=== PATIENT | female | born 1955 | race Caucasian/White ===

== ENCOUNTER 2022-12-08 09:43 | Observation (INO) ==
--- NOTE | 2022-08-13 15:52 | PAT Medication Instructions ---
Medication Instructions Date of Service August 13, 2022 Home Medications Prevagen 1 tab PO HS activated charcoal 200 mg capsule 400 mg PO PC PRN alendronate 35 mg tablet 35 mg PO WK aspirin 81 mg capsule 81 mg PO HS benzonatate 100 mg capsule 100 mg PO BID PRN biotin 1 mg capsule 1 mg PO QAM calcium carbonate 600 mg-vitamin D3 5 mcg (200 unit) tablet 1 tab PO QAM celecoxib 200 mg capsule (Celebrex) 200 mg PO DAILY PRN celecoxib 200 mg capsule (Celebrex) 200 mg PO QAM cholecalciferol (vitamin D3) 50 mcg (2,000 unit) capsule (Vitamin D3) 100 mcg PO Q2D cyanocobalamin (vitamin B-12) 2,500 mcg sublingual tablet (Vitamin B-12) 2,500 mcg sublingual QAM levothyroxine 50 mcg tablet 50 mcg PO HS lisinopril 20 mg-hydrochlorothiazide 25 mg tablet 1 tab PO QAM magnesium oxide 400 mg PO QAM melatonin 5 mg tablet 5 - 10 mg PO HS PRN [id number] 250 mg-dha 90 mg-epa 160 sx-hmbv-bvfe-zeax capsule (Ocuvite Adult 50 Plus) 1 cap PO QAM rosuvastatin 10 mg tablet 10 mg PO HS semaglutide 0.25 mg or 0.5 mg (2 mg/3 mL) subcutaneous pen injector (Ozempic) 0.5 mg subcut WK sertraline 50 mg tablet (Zoloft) 50 mg PO HS sour vasquez extract 1,000 mg capsule (Tart Vasquez Extract) 1,000 mg PO HS turmeric root extract 500 mg capsule 500 mg PO HS Continue as directed semaglutide 0.25 mg or 0.5 mg (2 mg/3 mL) subcutaneous pen injector (Ozempic) 0.5 mg subcut WK ASK your surgeon for instructions celecoxib 200 mg capsule (Celebrex) 200 mg PO DAILY PRN celecoxib 200 mg capsule (Celebrex) 200 mg PO QAM ASK your prescriber and surgeon Prevagen 1 tab PO HS STOP taking 2 weeks before surgery (or as soon as possible if surgery is within 2 weeks) activated charcoal 200 mg capsule 400 mg PO PC PRN biotin 1 mg capsule 1 mg PO QAM [id number] 250 mg-dha 90 mg-epa 160 pi-mlry-wqha-zeax capsule (Ocuvite Adult 50 Plus) 1 cap PO QAM sour vasquez extract 1,000 mg capsule (Tart Vasquez Extract) 1,000 mg PO HS turmeric root extract 500 mg capsule 500 mg PO HS DO NOT take the morning of surgery alendronate 35 mg tablet 35 mg PO WK benzonatate 100 mg capsule 100 mg PO BID PRN calcium carbonate 600 mg-vitamin D3 5 mcg (200 unit) tablet 1 tab PO QAM cholecalciferol (vitamin D3) 50 mcg (2,000 unit) capsule (Vitamin D3) 100 mcg PO Q2D cyanocobalamin (vitamin B-12) 2,500 mcg sublingual tablet (Vitamin B-12) 2,500 mcg sublingual QAM lisinopril 20 mg-hydrochlorothiazide 25 mg tablet 1 tab PO QAM magnesium oxide 400 mg PO QAM Take evening before surgery aspirin 81 mg capsule 81 mg PO HS (unless directed otherwise by surgeon) benzonatate 100 mg capsule 100 mg PO BID PRN(if needed) levothyroxine 50 mcg tablet 50 mcg PO HS melatonin 5 mg tablet 5 - 10 mg PO HS PRN(if needed) rosuvastatin 10 mg tablet 10 mg PO HS sertraline 50 mg tablet (Zoloft) 50 mg PO HS Other Notes NOTHING TO EAT OR DRINK AFTER MIDNIGHT. If you have any questions please call us at [phone] or [phone] or [phone] or [phone]
--- NOTE | 2022-08-27 11:00 | Anesthesiology Consultation ---
Date of Service August 27, 2022 Assessment & Plan (1) Encounter for pre-operative examination: Chart Review Chart Review: Acceptable Risk for Surgery and Patient seen in Pre Admission Testing - Check BSG AM DOS Hx of MS- did educate patient that TKA will most likely be done under GA- patient will discuss with anesthesiologist DOS - Due to functional status and PMH- patient is NOT an ideal OPJ candidate Per PAT appt on 08/27/22, patient denies any recent travel or large group activities. Pt is vaccinated for Covid. Will leave to surgeon's discretion if preop Covid testing needed. Educated on importance of using Covid precautions one week prior to surgery Teaching & Discussion Pre-Anesthesia Teaching/Discussion Notes: Instructed NPO after midnight before surgery,except medications with 15 cc of water. Medication instructions provided according to the PAT guidelines. History Surgery Operation Date: 09/19/22 07:00 Proposed Procedures p Right Total Knee Arthroplasty - Sonny Reed DO Height/Weight Height: 5 ft 4 in Weight: 111.5 kg Allergies Allergy/AdvReac Type Severity Reaction Status Date / Time Iodinated Contrast Media Allergy Severe Difficulty Verified 08/13/22 12:52 Breathing pregabalin [From Lyrica] Allergy Intermediate difficulty Verified 08/13/22 12:52 walking tetracycline Allergy Intermediate Rash Verified 08/13/22 12:52 Medications Home Medications Medication Instructions Recorded Confirmed Last Taken Prevagen 1 tab PO HS 08/13/22 08/13/22 Unknown activated charcoal 200 mg capsule 400 mg PO PC PRN ud 08/13/22 08/13/22 Unknown alendronate 35 mg tablet 35 mg PO WK 08/13/22 08/13/22 Unknown aspirin 81 mg capsule 81 mg PO HS 08/13/22 08/13/22 Unknown benzonatate 100 mg capsule 100 mg PO BID PRN Cough 08/13/22 08/13/22 Unknown biotin 1 mg capsule 1 mg PO QAM 08/13/22 08/13/22 Unknown calcium carbonate 600 mg-vitamin 1 tab PO QAM 08/13/22 08/13/22 Unknown D3 5 mcg (200 unit) tablet celecoxib 200 mg capsule (Celebrex) 200 mg PO DAILY PRN Pain 08/13/22 08/13/22 Unknown celecoxib 200 mg capsule (Celebrex) 200 mg PO QAM 08/13/22 08/13/22 Unknown cholecalciferol (vitamin D3) 50 100 mcg PO Q2D 08/13/22 08/13/22 Unknown mcg (2,000 unit) capsule (Vitamin D3) cyanocobalamin (vitamin B-12) 2,500 mcg sublingual QAM 08/13/22 08/13/22 Unknown 2,500 mcg sublingual tablet (Vitamin B-12) levothyroxine 50 mcg tablet 50 mcg PO HS 08/13/22 08/13/22 Unknown lisinopril 20 1 tab PO QAM 08/13/22 08/13/22 Unknown mg-hydrochlorothiazide 25 mg tablet magnesium oxide 400 mg PO QAM 08/13/22 08/13/22 Unknown melatonin 5 mg tablet 5 - 10 mg PO HS PRN Sleep 08/13/22 08/13/22 Unknown gqnzqoxk-rsl-tiokn0 250 mg-dha 90 1 cap PO QAM 08/13/22 08/13/22 Unknown mg-epa 160 su-mgtx-nxvm-zeax capsule (Ocuvite Adult 50 Plus) rosuvastatin 10 mg tablet 10 mg PO HS 08/13/22 08/13/22 Unknown semaglutide 0.25 mg or 0.5 mg (2 0.5 mg subcut WK 08/13/22 08/13/22 Unknown mg/3 mL) subcutaneous pen injector (Ozempic) sertraline 50 mg tablet (Zoloft) 50 mg PO HS 08/13/22 08/13/22 Unknown sour vasquez extract 1,000 mg 1,000 mg PO HS 08/13/22 08/13/22 Unknown capsule (Tart Vasquez Extract) turmeric root extract 500 mg 500 mg PO HS 08/13/22 08/13/22 Unknown capsule Additional Notes: - Takes activated charcoal only PRN (if eats too much) Past Medical History Medical History (Updated 08/27/22 @ 11:29 by Gena Giraldo PA-C) Anxiety Diabetes mellitus, type 2 controlled per patient Dyspnea on exertion Chronic - stable Hyperlipidemia Hypertension Hypothyroidism Multiple sclerosis stable currently- no medications at this time (on Copaxone in the best)- no longer needs to follow with neurology Osteoarthritis Osteoporosis Sleep apnea Noncompliant with CPAP Exercise / Class Metabolic Activity III < 4 Walking/Shop/Light housework (one flight stairs - no chest pain or SOB - goes slow to knee pain ) Past Family History Family History Mother FHx: stroke Father FHx: myocardial infarction Daughter FHx: non-Hodgkin's lymphoma, Onset Age: 35 Other No family history of adverse response to anesthesia Past Surgical History Surgical History History of cataract surgery bilateral History of colonoscopy History of detached retina repair left History of dilatation and curettage History of tonsillectomy S/P hammer toe correction S/P laparoscopic assisted vaginal hysterectomy (LAVH) S/P left knee arthroscopy x2 Past Anesthesia History No Hx of Anesthesia Complications and No Family Hx of Anesthesia Complications History of PONV No Hx of PONV and No Hx of Motion Sickness Social History Smoking Status: Never smoker Do You Dip or Chew Tobacco: No Hx Alcohol Use: Yes Alcohol type: wine alcohol intake frequency: holidays/special occasions only Hx Substance Use: No substance use type: does not use Review of Systems - Hx of blood transfusion at due to mother having Rh (-) blood Patient denies chest pain, shortness of breath at rest, reflux, cough, wheezing, palpitations. No hx of seizures, stroke, NV. No hx of blood clots. Physical Exam Vital Signs VITALS BP 154/89 (check daily at home- usually well controlled per patient) P 69 TEMP 98.1 SP02 96% RESP 16 Constitutional no acute distress ENMT Mouth: no TMJ clicking Thyromental Distance: > or= 3.5 Finger Breadths (3.5) Mallampati Class: I Missing molars Getting cavity repaired 09/03/22- patient states surgeon aware Neck + thick neck (mild); neck extension not limited Respiratory normal respiratory effort; no respiratory distress Auscultation: lungs clear to auscultation bilaterally; no wheezes Cardiovascular Rate/Rhythm: regular rate and regular rhythm Heart Sounds: no murmur Vessels: no carotid bruit Musculoskeletal Spine: no pain with cervical ROM Extremities: extremities normal to inspection Psychiatric Orientation: alert Lab Results Anesthesia Preop Results Results Anesthesia Widget: WBC 7.18 K/ul (4.8-10.8) 08/27/22 Hgb 13.9 g/dl (12.0-16.0) 08/27/22 Hct 40.9 % (37.0-47.0) 08/27/22 Plt 262 K/uL (130-400) 08/27/22 Na 139 mmol/L (136-145) 08/27/22 K 4.1 mmol/L (3.5-5.1) 08/27/22 Cl 103 mmol/L (98-107) 08/27/22 CO2 27 mmol/L (21-32) 08/27/22 BUN 14 mg/dl (6-23) 08/27/22 Creat 0.70 mg/dl (0.6-1.2) 08/27/22 Glucose Level 99 mg/dl (70-99(Fasting)) 08/27/22 PT 10.5 Seconds (9.0-12.0) 08/27/22 PTT 25.6 Seconds (21.0-31.0) 08/27/22 INR 1.0 (0.9-1.1) 08/27/22 HA1c 5.9 % (4.5-5.6) H 08/27/22 Blood Type B Positive 08/27/22 Antibody Screen NEGATIVE 08/27/22 Testing Electrocardiogram Date: 08/27/22 Findings: + NSR @ (66bpm ) Normal EKG per cardio Chest X-Ray Date: 08/27/22 Findings: + NAD Stress Test Date: 09/17/17 Type: exercise (ECHO) The study is suboptimal with improper matching of the rest and stress images, however there is normal resting wall motion with EF of 60%. All chan appear to be hyperdynamic with exercise. Exercise stress EKG and echo were negative for ischemia at low workload; the patient exercised only for 3:27 minutes >100% MPHR COVID-19 Risk Screen Screening Information COVID-19 Screen Date: 08/27/22 Exposure 21 Days Family/Household +COVID Last 21 Days: No Exposure 10 Days Any COVID Exposure Last 10 Days: No Symptoms Last 10 Days Experienced COVID Sx Last 10 Days: No + COVID 0-90 Days COVID + in Last 0-90 Days: No Risk Plan COVID Risk Plan: No Risk Identified Patient Education COVID Preop Screening Education Complete: Yes
--- NOTE | 2022-12-04 08:16 | History & Physical Report ---
Date of Service December 04, 2022 Assessment & Plan (1) Osteoarthritis of right knee: We will proceed with a right total knee arthroplasty. Postoperatively she will be started on aspirin for DVT prophylaxis and kept overnight in the hospital for postop medical management. [facility]. History of Present Illness Chief Complaint: Osteoarthritis of the right knee. Primary Care Provider: Janneth Pereira PA-C Zoie is a pleasant 67-year-old female has been dealing with chronic increasing osteoarthritis of her right knee. X-rays and clinical examination have confirmed the arthritis. After failing extensive conservative treatment, she has elected proceed with a right total knee arthroplasty.. Allergies Allergy/AdvReac Type Severity Reaction Status Date / Time Iodinated Contrast Media Allergy Severe Difficulty Verified 11/27/22 09:43 Breathing pregabalin [From Lyrica] Allergy Intermediate difficulty Verified 11/27/22 09:43 walking tetracycline Allergy Intermediate Rash Verified 11/27/22 09:43 Home Medications Medication Instructions Recorded Confirmed Type Prevagen 1 tab PO HS 08/13/22 11/27/22 History activated charcoal 200 mg capsule 400 mg PO PC PRN ud 08/13/22 11/27/22 History alendronate 35 mg tablet 35 mg PO WK 08/13/22 11/27/22 History aspirin 81 mg capsule 81 mg PO HS 08/13/22 11/27/22 History benzonatate 100 mg capsule 100 mg PO BID PRN Cough 08/13/22 11/27/22 History biotin 1 mg capsule 1 mg PO QAM 08/13/22 11/27/22 History calcium carbonate 600 mg-vitamin 1 tab PO QAM 08/13/22 11/27/22 History D3 5 mcg (200 unit) tablet celecoxib 200 mg capsule (Celebrex) 200 mg PO DAILY PRN Pain 08/13/22 11/27/22 History celecoxib 200 mg capsule (Celebrex) 200 mg PO QAM 08/13/22 11/27/22 History cholecalciferol (vitamin D3) 50 100 mcg PO Q2D 08/13/22 11/27/22 History mcg (2,000 unit) capsule (Vitamin D3) cyanocobalamin (vitamin B-12) 2,500 mcg sublingual QAM 08/13/22 11/27/22 History 2,500 mcg sublingual tablet (Vitamin B-12) levothyroxine 50 mcg tablet 50 mcg PO HS 08/13/22 11/27/22 History lisinopril 20 1 tab PO QAM 08/13/22 11/27/22 History mg-hydrochlorothiazide 25 mg tablet magnesium oxide 400 mg PO QAM 08/13/22 11/27/22 History melatonin 5 mg tablet 5 - 10 mg PO HS PRN Sleep 08/13/22 11/27/22 History bqjwylyu-xhu- 250 mg-dha 90 1 cap PO QAM 08/13/22 11/27/22 History mg-epa 160 ve-wapb-ccyy-zeax capsule (Ocuvite Adult 50 Plus) rosuvastatin 10 mg tablet 10 mg PO HS 08/13/22 11/27/22 History semaglutide 0.25 mg or 0.5 mg (2 0.5 mg subcut WK 08/13/22 11/27/22 History mg/3 mL) subcutaneous pen injector (Ozempic) sertraline 50 mg tablet (Zoloft) 50 mg PO HS 08/13/22 11/27/22 History sour vasquez extract 1,000 mg 1,000 mg PO HS 08/13/22 11/27/22 History capsule (Tart Vasquez Extract) turmeric root extract 500 mg 500 mg PO HS 08/13/22 11/27/22 History capsule mirabegron 25 mg tablet,extended 25 mg PO QAM 11/27/22 11/27/22 History release 24 hr (Myrbetriq) Past Med/Surg History Medical History Anxiety Diabetes mellitus, type 2 controlled per patient Dyspnea on exertion Chronic - stable Hyperlipidemia Hypertension Hypothyroidism Multiple sclerosis stable currently- no medications at this time (on Copaxone in the best)- no longer needs to follow with neurology Osteoarthritis Osteoporosis Sleep apnea Noncompliant with CPAP Surgical History History of cataract surgery bilateral History of colonoscopy History of detached retina repair left History of dilatation and curettage History of tonsillectomy S/P hammer toe correction S/P laparoscopic assisted vaginal hysterectomy (LAVH) S/P left knee arthroscopy x2 Family History Mother FHx: stroke Father FHx: myocardial infarction Daughter FHx: non-Hodgkin's lymphoma, Onset Age: 35 Other No family history of adverse response to anesthesia Social History Smoking Status: Never smoker Second Hand Exposure: Yes (hx); Do You Dip or Chew Tobacco: No; Hx Alcohol Use: Yes Alcohol type: wine Hx Substance Use: No Preferred Language: Uzbek Communication Ability: Effective Health And Social Care Teacher Required: No Beliefs That Will Affect Care: None Current Living Situation: Spouse Feels Safe at Home: Yes Assistive Devices: CPAP and Glasses Review of Systems All systems reviewed & are unremarkable except as noted in HPI & below. Physical Exam On physical examination the right knee, she does have a varus deformity. She has range of motion of 0 to 120 degrees. No gross instability. Pain of the distal medial femoral condyle and over the medial joint line.. Constitutional WD/WN, vitals as above Eyes PERRL, conjunctivae normal, anicteric sclerae ENMT external ear and nose normal, oropharynx normal Neck trachea midline, no thyromegaly Respiratory normal respiratory effort, lungs clear to auscultation Cardiovascular RRR, no murmur, no edema Gastrointestinal (Abdomen) normal bowel sounds, soft, nontender, no hepatosplenomegaly Skin no rashes, warm and dry Psychiatric A+Ox3, euthymic affect Results & Data Results & Data Laboratory Results . Diagnostic Findings X-rays of the right knee show advanced osteoarthritis with joint space narrowing, osteophyte formation, and rwld-qp-pjmk articulation.. PG Care Time/CCT Total # of Minutes Spent Total Time Spent with Patient: Total time spent is greater than 50% in coordination of care (as documented) at patient's floor/unit and/or counseling patient: Coding Level of Care Code None Diagnoses Osteoarthritis of right knee M17.11
[~2022-12-08 09:43] MED LIST: ACETAMINOPHEN 500 MG TAB PO SCH; BUPIVACAINE 0.5 % 5 MG/1 ML PF 10ML VIAL ONE; FAMOTIDINE 20 MG TAB PO SCH; GABAPENTIN 300 MG CAP PO SCH; LR 15ML/HR IV SCH; LR 60ML/HR IV SCH; ORTHO JOINT MIX INFIL SCH; ROPIVACAINE 0.5% 5 MG/ML 30 ML VIAL ONE; TRANEXAMIC ACID 1,000 MG **IV Intra-op IV SCH; TRANEXAMIC ACID 1,000 MG **IV Pre-op IV SCH; ceFAZolin 2000MG 2,000 MG/15 ML SYR IV SCH; dexAMETHasone 4 MG TAB PO SCH
[2022-12-08] MEDS ORDERED: MIDAZOLAM HCL 1 MG/ML 2ML VIAL ONE (10:07)
[2022-12-08] MEDS ORDERED: PROPOFOL IV EMULSION 10 MG/ML 20 ML VIAL IV ONE (10:07)
[2022-12-08] MEDS ORDERED: fentaNYL citrate PF 100 MCG/2 ML VIAL ONE ×2 (10:07→13:41)
[2022-12-08] MEDS ORDERED: ONDANSETRON INJ 2 MG/ML 2 ML VIAL ONE (10:07)
--- NOTE | 2022-12-08 10:44 | History & Physical Bridge Note ---
Date of Service December 08, 2022 History & Physical Bridge Note I have examined the patient, reviewed the History & Physical and in the interval since the performance of the History & Physical I have noted the following changes of clinical significance: no changes noted
[2022-12-08] MEDS ORDERED: ePHEDrine sulfate 50 MG/ML AMP IV PRN (10:59)
[2022-12-08] MEDS ORDERED: ATROPINE SULFATE 0.1 MG/ML 10ML SYR IV PRN (10:59)
[2022-12-08] MEDS ORDERED: ONDANSETRON INJ 2 MG/ML 2 ML VIAL IV PRN ×2 (10:59→17:23)
[2022-12-08] MEDS ORDERED: fentaNYL citrate PF 100 MCG/2 ML VIAL IV PRN (10:59)
[2022-12-08] MEDS ORDERED: ORTHO JOINT ANESTHETIC ONE (11:15)
[2022-12-08] MEDS ORDERED: LIDOCAINE 2% 2 ML VIAL/AMP(20MG/ML) INFIL ONE (13:30)
[2022-12-08] MEDS ORDERED: ROCURONIUM BROMIDE 10 MG/ML 5 ML VIAL IV ONE (13:30)
[2022-12-08] MEDS ORDERED: LABETALOL HCL IV 5 MG/ML 20ML IV ONE ×2 (13:47→13:59)
[2022-12-08] MEDS ORDERED: ePHEDrine sulfate 50 MG/5 ML SYR ONE (14:19)
[2022-12-08] MEDS ORDERED: NEOSTIGMINE METHYLSULFATE 1 MG/ML 10ML VIAL ONE (14:30)
[2022-12-08] MEDS ORDERED: GLYCOPYRROLATE 0.2 MG/ML VIAL ONE (14:30)
[2022-12-08] MEDS ORDERED: HYDROmorphone INJ 2 MG/ML SYR/VIAL ONE (14:55)
--- NOTE | 2022-12-08 15:03 | Operative Report ---
PG Post Operative Report Pre & Post Diagnosis Operation Date: 12/08/22 11:30 Pre-Op Diagnosis: Right Knee Degenerative Joint Disease Post-Op Diagnosis: Right Knee Degenerative Joint Disease I identified the patient and participated in the time-out.: Yes Procedure Operation Date: 12/08/22 11:30 Actual Procedures p Right Total Knee Arthroplasty(Right) - Sonny Reed DO Surgeon Sonny Reed DO Fancy Packer Sonny Boss PA-C Estimated Blood Loss 200 Findings Consistent with Post-Op Diagnosis Specimens Right femoral and tibial bone Description of Procedure Implants used: I used a Vi Persona total knee arthroplasty system with a size 8 standard PS femur, E tibia, 31 oval patella, and a size 16 CPS polyethylene bearing. All components were cemented in place with Biomet cement. Zoie arrived [facility] for the above procedure. She was seen in the preoperative holding area and the operative extremity was identified and signed. She was given a preoperative antibiotic, TXA, a spinal anesthetic and an adductor nerve block. She was taken back to the operating room and laid on the table in supine position. She was given basic sedation. The operative knee was then prepped and draped in sterile fashion. A timeout was done, and the patient and the operative extremity was properly identified. A midline incision was made directly over the patella. Dissection was taken down to the extensor mechanism. A midvastus arthrotomy was used. The medial retinaculum was released and the fat pad was mostly excised. The knee was flexed and the ACL, PCL, and meniscus were removed. A drill was sent down the center of the femoral canal followed by an intramedullary leanne. Off that leanne a distal femoral cutting block was placed. 9 mm was resected off the distal femur at 5 of valgus. A posterior referencing AP sizing guide was then placed on the distal femur. The femur measured to be a size 8. 2 drill holes were placed in 3 of external rotation. A 4-in-1 cutting block was then impacted into place. Anterior, posterior, and chamfer cuts were then made. The proximal tibia was then exposed. An external tibial alignment guide was placed. A tibial cut guide was then anchored in place and the proximal tibia was then resected. The posterior aspect of the knee was then opened up and any additional meniscus fragments and osteophytes were removed. The tibia measured to be a size E. The tibial plate was then placed in the appropriate rotation and the tibia was drilled and punched. Trial components were then placed. I used a size 16 CPS polyethylene insert. The knee was brought through a full range of motion and felt to be stable. The peg holes for the femoral component were then drilled. The patella was then everted and 9 mm was resected off the posterior aspect of the patella. The patella measured to be a size 31 oval. 3 peg holes were then drilled. A trial patella was placed. The knee was once again brought through a full range of motion and felt to be stable. Trial components were then removed. The surrounding soft tissues were injected with 100 cc of an orthopedic pain control cocktail. All components were then cemented into place with Biomet cement. The final polyethylene insert was then snapped into place. Once cement was dry the tourniquet was deflated. Hemostasis was obtained. A dilute betadyne lavage was then done for 3 minutes. The joint was then irrigated with normal saline solution. The midvastus arthrotomy was then closed with #1 Vicryl suture. The skin was closed with 2-0 Vicryl, 3-0V lock suture, and mart. A soft compressive dressing was placed. She was then transferred to a hospital bed and taken to the postanesthesia care unit in stable condition. She tolerated the procedure well. Sonny Boss PA-C, was present for the entire procedure. He was critical for patient positioning, prepping, draping, retraction exposure, wound closure and application of sterile dressing. I attest to the content of the Intraoperative Record and any orders documented therein. Any exceptions are noted below.
--- NOTE | 2022-12-08 16:12 | XRay Report ---
XR knee RT 1 or 2V routine HISTORY: 67 years-old Female Surgical Post Op right knee arthroplasty COMPARISON: 06/04/2022 TECHNIQUE: 2 views of the right knee FINDINGS: Total arthroplasty with patellar surfacing. Anterior midline skin mart with postoperative soft tis anahy swelling and deep tissue air. The degree of anterior soft tissue swelling is greater than expecte d. No acute fracture identified. IMPRESSION: Right knee arthroplasty with satisfactory alignment. ACT 112: Negative or not required by law. The above report was generated using voice recognition software. It may contain grammatical, syntax o r spelling errors. Electronically signed by: Morgan Echavarria M.D. 12/08/2022 4:11 PM
--- NOTE | 2022-12-08 16:14 | Anesthesiology Progress Note ---
Date of Service December 08, 2022 Anesthesia Post Procedure Vital Signs Vital Signs: Temp Pulse Pulse Resp BP Pulse Ox O2 Del Method 12/08/22 16:10 71 14 140/82 98 Nasal Cannula 12/08/22 16:00 36.3 C L 76 20 154/77 H 97 Nasal Cannula 12/08/22 15:50 74 16 141/77 H 95 Oxymask 12/08/22 15:30 74 16 149/68 H 93 Oxymask 12/08/22 15:40 76 15 150/82 H 94 Oxymask 12/08/22 15:20 75 18 149/74 H 92 Oxymask 12/08/22 15:12 36.2 C L 73 16 126/67 92 Oxymask 12/08/22 10:18 36.8 C 94 H 20 196/88 H 95 Room Air O2 Flow Rate 12/08/22 16:10 2 12/08/22 16:00 3 12/08/22 15:50 3 12/08/22 15:30 8 12/08/22 15:40 8 12/08/22 15:20 10 12/08/22 15:12 10 12/08/22 10:18 Transfer of Care Handoff Completed per policy Notes Mental Status: alert / awake / arousable and participated in evaluation Patient Amnestic to Procedure: Yes Nausea / Vomiting: adequately controlled Pain: adequately controlled Airway Patency, RR, SpO2: stable & adequate BP & HR: stable & adequate Hydration State: stable & adequate Anesthetic Complications: no major complications apparent and Pt Satisfied with anesthetic care
[2022-12-08] MEDS ORDERED: MAGNESIUM HYDROXIDE SUSP 30 ML UDC PO PRN (17:23)
[2022-12-08] MEDS ORDERED: NALOXONE HCL 0.4 MG/1 ML VIAL/CARP IV PRN (17:23)
[2022-12-08] MEDS ORDERED: SODIUM CHLORIDE 0.9% 1,000 ML IV SCH (17:23)
[2022-12-08] MEDS ORDERED: HYDROmorphone INJ 0.5 MG/0.5 ML SYR IV PRN (17:23)
[2022-12-08] MEDS ORDERED: oxyCODONE HCL IR 5 MG TAB (IMMEDIATE RELEASE) PO PRN (17:23)
[2022-12-08] MEDS ORDERED: bisacodyL 10 MG SUPP PR PRN (17:23)
[2022-12-08] MEDS ORDERED: METOCLOPRAMIDE HCL INJ 5 MG/ML 2 ML VIAL IV PRN (17:23)
[2022-12-08] MEDS: KETOROLAC TROMETHAMINE 15 MG/ML VIAL IV SCH (17:53)
[2022-12-08] MEDS ORDERED: PHARMACY GLYCEMIC MGMT CONSULT PRN (18:40)
[2022-12-08] MEDS ORDERED: LANTUS PER UNIT CHARGE SC ONE (19:00)
[2022-12-08] MEDS ORDERED: INSULIN ASPART PER UNIT CHARGE SC SCH (19:00)
[2022-12-08] MEDS: INSULIN ASPART PER UNIT CHARGE SC SCH (19:43)
[2022-12-08] MEDS: ASPIRIN 81 MG ECTAB PO SCH (19:44)
[2022-12-08] MEDS: DOCUSATE SODIUM 100 MG CAP PO SCH (19:45)
[2022-12-08] MEDS: ceFAZolin 2000MG 2,000 MG/15 ML SYR IV SCH (20:06)
[2022-12-08] MEDS ORDERED: SERTRALINE HCL 50 MG TABLET PO SCH (21:00)
[2022-12-08] MEDS ORDERED: LEVOTHYROXINE SODIUM 50 MCG TABLET PO SCH (21:00)
[2022-12-08] MEDS ORDERED: ROSUVASTATIN CALCIUM 10 MG TAB PO SCH (21:00)
[2022-12-08] MEDS ORDERED: SENNA 8.6 MG TAB PO SCH (21:00)
[2022-12-08] MEDS: ACETAMINOPHEN 500 MG TAB PO SCH (22:01)
[2022-12-09] MEDS: INSULIN ASPART PER UNIT CHARGE SC SCH ×4 (00:06→12:43)
[2022-12-09] MEDS: KETOROLAC TROMETHAMINE 15 MG/ML VIAL IV SCH ×2 (00:12→04:04)
[2022-12-09] MEDS: ceFAZolin 2000MG 2,000 MG/15 ML SYR IV SCH (04:03)
[2022-12-09] MEDS: ACETAMINOPHEN 500 MG TAB PO SCH (04:04)
--- NOTE | 2022-12-09 07:07 | Orthopedic Progress Note ---
Date of Service December 09, 2022 Assessment & Plan (1) Status post right knee replacement: Overall she is doing very well. She is not having much pain in the right knee. She will be seen by physical therapy today for ambulation and range of motion exercises. She is on aspirin for DVT prophylaxis. She can be discharged home later today. She will follow-up orthopedics in 2 weeks. Subjective Zoie was seen and examined at bedside this morning. Overall she is doing very well. She is not having much pain in the right knee. She has been up and ambulating to the bathroom. She has no complaints.. Review of Systems All systems reviewed & are unremarkable except as noted in HPI & below. Physical Exam On physical examination of the right knee, the dressing is clean and dry. Her leg is out full extension. She has active dorsiflexion plantarflexion of her right ankle.. Results & Data Results & Data Laboratory Results . Diagnostic Findings Postoperative x-rays of the right knee show the prosthesis to be in anatomic alignment without any evidence of fracture complication, or loosening.. PG Care Time/CCT Total # of Minutes Spent Total Time Spent with Patient: Total time spent is greater than 50% in coordination of care (as documented) at patient's floor/unit and/or counseling patient: Coding Level of Care Code 20714 Post Operative Follow-Up Diagnoses Status post right knee replacement Z96.651
--- NOTE | 2022-12-09 07:08 | Discharge Summary ---
Date of Service December 09, 2022 Admission HPI (Per Admitting) Zoie is a pleasant 67-year-old female has been dealing with chronic increasing osteoarthritis of her right knee. X-rays and clinical examination have confirmed the arthritis. After failing extensive conservative treatment, she has elected proceed with a right total knee arthroplasty.. Admission Exam (Per Admitting) On physical examination the right knee, she does have a varus deformity. She has range of motion of 0 to 120 degrees. No gross instability. Pain of the distal medial femoral condyle and over the medial joint line.. Principal Diagnosis Same as "Discharge Diagnosis" noted below under Discharge Instructions. Discharge Exam On physical examination of the right knee, the dressing is clean and dry. Her leg is out full extension. She has active dorsiflexion plantarflexion of her right ankle.. Discharge Data Procedures Performed Operation Date: 12/08/22 11:30 Actual Procedures p Right Total Knee Arthroplasty(Right) - Sonny Reed DO Ordered Studies 09/19/22 05:00 US - OR guided needle placemen Routine 12/08/22 05:00 US - OR guided needle placemen Routine Hospital Course (1) Status post right knee replacement: On December 09, 2022 Zoie arrived at [facility] and underwent a right knee replaced without complication. She had a spinal anesthetic. Postoperatively she was started on aspirin for DVT prophylaxis and transferred to the general orthopedic floors. Her hospital course was uneventful. On postop day #1, her vital signs were stable and her pain was well controlled. She was able to participate well with physical therapy doing ambulation and range of motion exercises. She was then discharged home. She will follow-up orthopedics in 2 weeks. PG Care Time/CCT Total # of Minutes Spent Total Time Spent with Patient: Total time spent is greater than 50% in coordination of care (as documented) at patient's floor/unit and/or counseling patient: Discharge Plan Discharge Items Patient Disposition: Home - Home Health Services Reason For Visit: POST OP Discharge Diagnosis: Right knee replacement Activity: Per Instructions section Non-emergency contact: Surgeon Call non-emergency contact if: your wound has increased redness and your wound has increased drainage Follow-up/Referrals: Janneth Pereira PA-C [Primary Care Provider] - Diet: Regular Addtl Attending Provider Instructions: Activity and Therapy Recommendations: * If you are using [facility] then therapy will be provided at your home until they feel you have accomplished all of your goals. * If you are using [facility] then Physical Therapy will be provided until they feel you are ready to start Outpatient Physical Therapy. * If you are not using home therapy then Outpatient Physical Therapy should start about 3-5 days from your day of surgery. Therapy will last about 6-10 weeks * It is important not to put a pillow under your knee when you are relaxing or sleeping. It is just as important to make sure you are getting your knee perfectly straight as it is to regain your knee bend. * You were shown a series of exercises in the hospital. Do these exercises three times each day including the exercises you were shown in physical therapy. * Get up and walk several times each day. For the first four weeks, try not to stand or walk for more than one hour at a time. If you do stand or walk for more than one hour, you will not hurt anything, but your leg will likely swell. * As you feel comfortable, you may change from the walker or crutches to a cane and then to independent walking. Medications: * Narcotic You will likely be sent home from the hospital with a prescription for the narcotic pain medication that worked best throughout your stay. * Aspirin Most patients will be required to take Aspirin 81mg twice a day for 6 weeks after surgery. This is obtained [id number] and a prescription is not necessary. * Other medications may be prescribed for specific circumstances. If you have any questions, please call the office at . * Resume previous home medications unless otherwise instructed TEDs/Elastic Stockings: The white elastic stockings help limit swelling and prevent blood clots from forming in your legs.~ The more you wear them, the more they work. Wear them for six weeks. Dressing Care: The dressing can be changed after physical therapy on postop day #1. Daily dry dressing changes for a few days, especially if the incision is still draining some. If the incision is not draining then you may leave the mart open to air. If there is a little bit of drainage or if the mart are getting stuck on your clothing then cover the incision with a dry dressing. The mart will be removed at your 2 week follow-up appointment. Showering: You may shower 5 days from the day of surgery as long as the incision is no longer draining. You may shower with the mart exposed. Let soapy water run over the mart and pat them dry. Do not scrub or soak the incision. Things To Watch For: * Drainage from the incision site that occurs more than one week after your surgery. * Increased redness at the incision site. * Fever above 102 degrees Fahrenheit. * Unusual chest pain or shortness of breath. * Call [facility] at with any of the above problems Follow-Up Visit: Follow-up with Dr. Reed's PA (Sonny Boss) 2-3 weeks after your day of surgery. He will remove your mart and answer any questions. If you have any additional questions or concerns, Dr Reed is usually in the office at the same time and will be available An appointment was probably scheduled when you signed-up for surgery in the office. If you have any questions call Office Instructions: More detailed instructions as well as Frequently Asked Questions were provided in a folder by our office when you signed-up for surgery. Please review these instructions when you get home. If you have any further questions or concerns, please feel free to call the office at [phone] Pending Studies at Discharge: No Stand-Alone Forms: [facility] Medications and DC Order Prescriptions: New oxycodone 5 mg Tablet 5 mg PO Q4H PRN (Reason: pain) Qty: 30 0RF Continued celecoxib [Celebrex] 200 mg Capsule 200 mg PO DAILY PRN (Reason: Pain) cyanocobalamin (vitamin B-12) [Vitamin B-12] 2,500 mcg Tablet, Sublingual 2,500 mcg SUBLINGUAL QAM calcium carbonate-vitamin D3 [Calcium + D] 600 mg-5 mcg (200 unit) Tablet 1 tab PO QAM alendronate 35 mg Tablet 35 mg PO WK benzonatate [Tessalon Perles] 100 mg Capsule 100 mg PO BID PRN (Reason: Cough) levothyroxine 50 mcg Tablet 50 mcg PO HS lisinopril-hydrochlorothiazide 20-25 mg Tablet 1 tab PO QAM sertraline [Zoloft] 50 mg Tablet 50 mg PO HS rosuvastatin 10 mg Tablet 10 mg PO HS activated charcoal 200 mg Capsule 400 mg PO PC PRN (Reason: ud) Rx Instructions: may repeat dose once in 2 hours if incomplete response melatonin 5 mg Tablet 5 - 10 mg PO HS PRN (Reason: Sleep) cholecalciferol (vitamin D3) [Vitamin D3] 50 mcg (2,000 unit) Capsule 100 mcg PO Q2D turmeric root extract 500 mg Capsule 500 mg PO HS biotin 1 mg Capsule 1 mg PO QAM magnesium oxide 400 mg magnesium Tablet 400 mg PO QAM Ocuvite Adult 50 Plus 250 mg (90 mg-160 mg) Capsule 1 cap PO QAM Ozempic 0.25 mg or 0.5 mg (2 mg/3 mL) Pen Injector 0.5 mg SUBCUT WK Patient Comments: sundays Prevagen 1 tab PO HS Myrbetriq 25 mg Tablet Extended Release 24 Hr 25 mg PO QAM Changed aspirin 81 mg Capsule 81 mg PO BID 42 Days Qty: 0 0RF Admission Data Admit Date/Time: 12/08/22 15:12 Attending Provider: Sonny Reed Admit Provider: Sonny Reed Primary Care Provider: Janneth Pereira Other Providers: [employer] [facility]
[2022-12-09] MEDS: ASPIRIN 81 MG ECTAB PO SCH (07:58)
[2022-12-09] MEDS: DOCUSATE SODIUM 100 MG CAP PO SCH (07:59)
[2022-12-09] MEDS ORDERED: dexAMETHasone 4 MG TAB PO SCH (08:00)
[2022-12-09 08:31] LABS: Estimated Average Glucose 123 mg/dl; Hemoglobin A1C 5.9 % (4.5-5.6)
[2022-12-09] MEDS ORDERED: MAGNESIUM OXIDE 400 MG TAB PO SCH (09:00)
[2022-12-09] MEDS ORDERED: VIBEGRON 75 MG TAB PO SCH (09:00)
[2022-12-09] MEDS ORDERED: LISINOPRIL/HCTZ 20/25MG 1 TAB PO SCH (09:00)
[2022-12-09] MEDS ORDERED: MULTIVITAMIN TAB PO SCH (09:00)
[2022-12-14] MEDS ORDERED: ALENDRONATE SODIUM 70 MG TAB PO SCH (09:00)
== END 2022-12-09 13:15 | disposition home health service (06) ==
LOC: ASU 09:43 → 3E 09:43

== ENCOUNTER 2023-11-13 07:53 | Observation (INO) ==
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
[~2023-11-13 07:53] MED LIST changes: -ACETAMINOPHEN 500 MG TAB PO SCH; +BUPIVACAINE 0.25% PF 30 ML VIAL ONE; -FAMOTIDINE 20 MG TAB PO SCH; -GABAPENTIN 300 MG CAP PO SCH; -LR 15ML/HR IV SCH; -LR 60ML/HR IV SCH; -ORTHO JOINT MIX INFIL SCH; -ROPIVACAINE 0.5% 5 MG/ML 30 ML VIAL ONE; -TRANEXAMIC ACID 1,000 MG **IV Intra-op IV SCH; -TRANEXAMIC ACID 1,000 MG **IV Pre-op IV SCH; -ceFAZolin 2000MG 2,000 MG/15 ML SYR IV SCH; -dexAMETHasone 4 MG TAB PO SCH
[2023-11-13] MEDS: FAMOTIDINE 20 MG TAB PO SCH (08:33)
[2023-11-13] MEDS: ACETAMINOPHEN 500 MG TAB PO SCH (08:33)
[2023-11-13] MEDS: GABAPENTIN 300 MG CAP PO SCH (08:33)
[2023-11-13] MEDS: dexAMETHasone**PF** 10 MG/ML VIAL IV SCH (08:33)
[2023-11-13] MEDS: LR 60ML/HR IV SCH (08:34)
[2023-11-13] MEDS: LR 15ML/HR IV SCH (08:45)
[2023-11-13] MEDS ORDERED: MIDAZOLAM HCL 1 MG/ML 2ML VIAL ONE (09:04)
[2023-11-13] MEDS ORDERED: PROPOFOL IV EMULSION 10 MG/ML 20 ML VIAL IV ONE ×2 (09:06→11:01)
--- NOTE | 2023-11-13 09:15 | History & Physical Bridge Note ---
Date of Service November 13, 2023 History & Physical Bridge Note I have examined the patient, reviewed the History & Physical and in the interval since the performance of the History & Physical I have noted the following changes of clinical significance: no changes noted
[2023-11-13] MEDS ORDERED: ONDANSETRON INJ 2 MG/ML 2 ML VIAL IV PRN ×2 (09:23→11:59)
[2023-11-13] MEDS ORDERED: ePHEDrine sulfate 50 MG/ML AMP IV PRN (09:23)
[2023-11-13] MEDS ORDERED: ATROPINE SULFATE 0.1 MG/ML 10ML SYR IV PRN (09:23)
[2023-11-13] MEDS ORDERED: fentaNYL citrate PF 100 MCG/2 ML VIAL IV PRN (09:23)
[2023-11-13] MEDS: TRANEXAMIC ACID 1,000 MG **IV Pre-op IV SCH (09:53)
[2023-11-13] MEDS: ceFAZolin 2000MG 2,000 MG/15 ML SYR IV SCH ×2 (10:12→18:04)
[2023-11-13] MEDS ORDERED: fentaNYL citrate PF 100 MCG/2 ML VIAL ONE (10:13)
[2023-11-13] MEDS ORDERED: HYDROmorphone INJ 2 MG/ML SYR/VIAL ONE (10:33)
[2023-11-13] MEDS ORDERED: KETAMINE HCL 10MG/ML SYR ONE (10:34)
[2023-11-13] MEDS ORDERED: ONDANSETRON INJ 2 MG/ML 2 ML VIAL ONE (10:49)
[2023-11-13] MEDS ORDERED: ePHEDrine sulfate 50 MG/ML AMP ONE (10:49)
[2023-11-13] MEDS: ROPIV 0.5% 246mg, Ketorolac 30mg, EPINEPHrine 0.5mg in NSS INFIL SCH (10:55)
[2023-11-13] MEDS: ORTHO JOINT ANESTHETIC ONE (10:56)
[2023-11-13] MEDS: TRANEXAMIC ACID 1,000 MG **IV Intra-op IV SCH (11:15)
--- NOTE | 2023-11-13 11:27 | Operative Report ---
PG Post Operative Report Pre & Post Diagnosis Operation Date: 11/13/23 10:00 Pre-Op Diagnosis: Degenerative Joint Disease Left Knee Post-Op Diagnosis: Degenerative Joint Disease Left Knee I identified the patient and participated in the time-out.: Yes Procedure Operation Date: 11/13/23 10:00 Actual Procedures p Left Total Knee Arthroplasty(Left) - Sonny Reed DO Surgeon Sonny Reed DO Block Paver Kimberley Martinez PA-C Estimated Blood Loss 30 Findings Consistent with Post-Op Diagnosis Specimens Left femoral tibial bone Description of Procedure Implants used: I used a Vi Persona total knee arthroplasty system with a size 7 standard PS femur, E tibia, 28 oval patella, and a size 12 CPS polyethylene bearing. All components were cemented in place with Biomet cement. Zoie arrived [facility] for the above procedure. She was seen in the preoperative holding area and the operative extremity was identified and signed. She was given a preoperative antibiotic, TXA, a spinal anesthetic and an adductor nerve block. She was taken back to the operating room and laid on the table in supine position. She was given basic sedation. The operative knee was then prepped and draped in sterile fashion. A timeout was done, and the patient and the operative extremity was properly identified. A midline incision was made directly over the patella. Dissection was taken down to the extensor mechanism. A medial parapatellar arthrotomy was used. The medial retinaculum was released and the fat pad was mostly excised. The knee was flexed and the ACL, PCL, and meniscus were removed. A drill was sent down the center of the femoral canal followed by an intramedullary leanne. Off that leanne a distal femoral cutting block was placed. 9 mm was resected off the distal femur at 5 of valgus. A posterior referencing AP sizing guide was then placed on the distal femur. The femur measured to be a size 7. 2 drill holes were placed in 3 of external rotation. A 4-in-1 cutting block was then impacted into place. Anterior, posterior, and chamfer cuts were then made. The proximal tibia was then exposed. An external tibial alignment guide was placed. A tibial cut guide was then anchored in place and the proximal tibia was then resected. The posterior aspect of the knee was then opened up and any additional meniscus fragments and osteophytes were removed. The tibia measured to be a size E. The tibial plate was then placed in the appropriate rotation and the tibia was drilled and punched. Trial components were then placed. I used a size 12 CPS polyethylene insert. The knee was brought through a full range of motion and felt to be stable. The peg holes for the femoral component were then drilled. The patella was then everted and 9 mm was resected off the posterior aspect of the patella. The patella measured to be a size 28 oval. 3 peg holes were then drilled. A trial patella was placed. The knee was once again brought through a full range of motion and felt to be stable. Trial components were then removed. The surrounding soft tissues were injected with 100 cc of an orthopedic pain control cocktail. All components were then cemented into place with Biomet cement. The final polyethylene insert was then snapped into place. Once cement was dry the tourniquet was deflated. Hemostasis was obtained. A dilute betadyne lavage was then done for 3 minutes. The joint was then irrigated with normal saline solution. The medial parapatellar arthrotomy was then closed with #1 Vicryl suture. The skin was closed with 2-0 Vicryl, 3-0V lock suture, and mart. A soft compressive dressing was placed. She was then transferred to a hospital bed and taken to the postanesthesia care unit in stable condition. She tolerated the procedure well. Kimberley Martinez PA-C, was present for the entire procedure. He was critical for patient positioning, prepping, draping, retraction exposure, wound closure and application of sterile dressing. I attest to the content of the Intraoperative Record and any orders documented therein. Any exceptions are noted below.
[2023-11-13] MEDS ORDERED: HYDROmorphone INJ 1 MG/ML SYRINGE IV PRN (11:59)
[2023-11-13] MEDS ORDERED: oxyCODONE HCL IR 5 MG TAB (IMMEDIATE RELEASE) PO PRN (11:59)
[2023-11-13] MEDS ORDERED: ACETAMINOPHEN 1,000 MG/100 ML VIAL IV PRN (11:59)
[2023-11-13] MEDS ORDERED: MAGNESIUM HYDROXIDE SUSP 30 ML UDC PO PRN (11:59)
[2023-11-13] MEDS ORDERED: bisacodyL 10 MG SUPP PR PRN (11:59)
[2023-11-13] MEDS ORDERED: HYDROmorphone INJ 0.5 MG/0.5 ML SYR IV PRN (11:59)
[2023-11-13] MEDS ORDERED: METOCLOPRAMIDE HCL INJ 5 MG/ML 2 ML VIAL IV PRN (11:59)
[2023-11-13] MEDS ORDERED: NALOXONE HCL 0.4 MG/1 ML VIAL/CARP IV PRN (11:59)
[2023-11-13] MEDS ORDERED: diphenhydrAMINE Capsule 25 MG CAP PO PRN (11:59)
[2023-11-13] MEDS ORDERED: BENZONATATE 100 MG CAPSULE PO PRN (12:03)
[2023-11-13] MEDS ORDERED: ACTIVATED CHARCOAL 200 MG PO PRN (12:03)
[2023-11-13] MEDS ORDERED: NON-FORMULARY MEDICATION (Amoxicillin 500 mg Tablet) PO PRN (12:03)
[2023-11-13] MEDS ORDERED: NON-FORMULARY MEDICATION (Semaglutide [Ozempic] 0.25 mg or 0.5 mg (2 mg/3 mL) Pen Injector SQ SCH (12:15)
[2023-11-13] MEDS ORDERED: PHARMACY GLYCEMIC MGMT CONSULT PRN (12:29)
--- NOTE | 2023-11-13 12:31 | XRay Report ---
XR knee LT 1 or 2V routine CLINICAL HISTORY: Postoperative evaluation. COMPARISON: Left knee radiographs January 28, 2023. FINDINGS: Alignment of the total left knee arthroplasty is anatomic. There is no periprosthetic frac ture or unexpected radiopaque foreign body. There are skin mart. IMPRESSION: Expected findings following total left knee arthroplasty. ACT 112: Negative or not required by law. Electronically signed by: Imtiaz Valenzuela M.D. 11/13/2023 12:29 PM
[2023-11-13] MEDS ORDERED: CARBOHYDRATES FOR HYPOGLYCEMIA PO PRN (12:45)
[2023-11-13] MEDS ORDERED: GLUCOSE 40% GEL 15 GM TUBE PO PRN (12:45)
[2023-11-13] MEDS ORDERED: GLUCOSE 10 TAB/TUBE PO PRN (12:45)
[2023-11-13] MEDS ORDERED: GLUCAGON FOR INJ 1 MG VIAL IM PRN (12:45)
[2023-11-13] MEDS ORDERED: DEXTROSE 50% 50 ML SYRINGE IV PRN (12:45)
[2023-11-13] MEDS: SODIUM CHLORIDE 0.9% 1,000 ML IV SCH (13:44)
[2023-11-13] MEDS: LANTUS PER UNIT CHARGE SC SCH (14:15)
[2023-11-13] MEDS: KETOROLAC TROMETHAMINE 15 MG/ML VIAL IV SCH (14:17)
--- NOTE | 2023-11-13 14:30 | Pharmacy Report ---
Pharmacy Glycemic Short Note 2 - Date of Service November 13, 2023 - Glycemic Short BSG Results (Last 24 hours): 11/13/23 11/13/23 11/13/23 08:22 12:08 13:54 POC Glucose 123 H 175 H 188 H OUTPATIENT ANTIDIABETIC REGIMEN: * Ozempic 0.5 mg SC every Thursday * HbA1c pending for 11/14/23 ASSESSMENT: * 68 yo F admitted on 11/13/23 postoperatively following a left total knee arthroplasty. Pharmacy has been consulted to assist with inpatient glycemic management. Patient is a Type 2 diabetic as an outpatient. Please refer to outpatient regimen and most recent HbA1c above. * Preop BSG was 123 mg/dL. Postop BSGs have been 175-188 mg/dL. Received 10 mg of IV dexamethasone preop. Ordered for 8 mg of PO dexamethasone x 1 dose tomorrow. Ordered a T2DM diet, will follow to see if patient tolerates. * Will give ~0.2 units/kg dose of Lantus today postoperatively. Will continue this for one more day while on dexamethasone. If dexamethasone is held/discontinued, then consider holding Lantus tomorrow. * Will start Novolog based on weight/stress of 3. PLAN FOR INPATIENT GLYCEMIC CONTROL: * Hold outpatient Ozempic * Basal insulin * Lantus 20 units SC daily x 2 doses * Bolus insulin * NovoLog per scale ACHS or Q6hrs while NPO * Goal Range: Low 110 mg/dL - High 140 mg/dL * Correction Factor: 15 mg/dL/unit * Nutritional / Prandial insulin per carb ratio of 1 unit per 5 grams CHO consumed
--- NOTE | 2023-11-13 14:39 | Anesthesiology Progress Note ---
Date of Service November 13, 2023 Anesthesia Post Procedure Vital Signs Vital Signs: Temp Pulse Pulse Resp BP BP Pulse Ox 11/13/23 14:20 36.2 C L 85 16 136/76 93 11/13/23 13:47 87 18 120/82 94 11/13/23 13:20 36.6 C 90 16 167/83 H 92 11/13/23 13:15 89 14 148/74 H 93 11/13/23 13:00 36.4 C L 90 21 154/87 H 91 11/13/23 12:50 88 17 126/90 91 11/13/23 12:40 88 16 129/82 92 11/13/23 12:30 86 24 132/87 91 11/13/23 12:20 95 H 17 146/94 H 93 11/13/23 12:10 89 18 186/98 H 92 11/13/23 12:02 36.4 C L 96 H 23 191/89 H 93 11/13/23 08:19 36.7 C 98 H 20 164/98 H 96 O2 Del Method O2 Flow Rate 11/13/23 14:20 Nasal Cannula 2 11/13/23 13:47 Nasal Cannula 2 11/13/23 13:20 Nasal Cannula 2 11/13/23 13:15 Oxymask 4 11/13/23 13:00 Oxymask 4 11/13/23 12:50 Oxymask 4 11/13/23 12:40 Oxymask 4 11/13/23 12:30 Oxymask 6 11/13/23 12:20 Oxymask 10 11/13/23 12:10 Oxymask 10 11/13/23 12:02 Oxymask 10 11/13/23 08:19 Room Air Transfer of Care Handoff Completed per policy Notes Mental Status: alert / awake / arousable and participated in evaluation Patient Amnestic to Procedure: Yes Nausea / Vomiting: adequately controlled Pain: adequately controlled Airway Patency, RR, SpO2: stable & adequate BP & HR: stable & adequate Hydration State: stable & adequate Anesthetic Complications: no major complications apparent and Pt Satisfied with anesthetic care
[2023-11-13] MEDS: INSULIN ASPART PER UNIT CHARGE SC SCH (14:47)
[2023-11-13] MEDS: LEVOTHYROXINE SODIUM 50 MCG TABLET PO SCH (21:37)
[2023-11-13] MEDS: SENNA 8.6 MG TAB PO SCH (22:30)
[2023-11-13] MEDS: SERTRALINE HCL 50 MG TABLET PO SCH (22:31)
[2023-11-13] MEDS: MAGNESIUM OXIDE 400 MG TAB PO SCH (22:31)
[2023-11-13] MEDS: ROSUVASTATIN CALCIUM 10 MG TAB PO SCH (22:31)
[2023-11-13] MEDS: VIBEGRON 75 MG TAB PO SCH (22:31)
[2023-11-13] MEDS: DOCUSATE SODIUM 100 MG CAP PO SCH (22:33)
[2023-11-14] MEDS: INSULIN ASPART PER UNIT CHARGE SC ONE (01:49)
--- NOTE | 2023-11-14 06:53 | Orthopedic Progress Note ---
Date of Service November 14, 2023 Assessment & Plan (1) Status post left knee replacement: Overall she is doing fairly well. She is not having much pain in the left knee. She will be seen by physical therapy today for ambulation and range of motion exercises. The nursing staff can change her dressing after physical therapy. She is on aspirin for DVT prophylaxis. She can be discharged home later today. She will follow-up orthopedics in 2 weeks. Prince Lino was seen and examined at bedside this morning. Overall she is doing fairly well. She is not having much pain in the left knee. She has been up and ambulating to the bathroom. She is no complaints.. Review of Systems All systems reviewed & are unremarkable except as noted in HPI & below. Physical Exam On physical examination of the left knee, the dressing is clean and dry. His leg is out full extension. She has active dorsiflexion plantarflexion of her left ankle.. Results & Data Results & Data Laboratory Results . Diagnostic Findings Postoperative x-rays of the left knee show the prosthesis to be in anatomic alignment without any evidence of fracture, dislocation, or loosening.. PG Care Time/CCT Total # of Minutes Spent Total Time Spent with Patient: Total time spent is greater than 50% in coordination of care (as documented) at patient's floor/unit and/or counseling patient: Coding Level of Care Code 62926 Post Operative Follow-Up Diagnoses Status post left knee replacement Z96.652
--- NOTE | 2023-11-14 06:54 | Discharge Summary ---
Date of Service November 14, 2023 Admission HPI (Per Admitting) Zoie is a pleasant 68-year-old female who we did a right knee replacement on in November 2022. She has done fairly well with that. Unfortunately, she is dealing with a lot of left knee pain. X-rays and clinical examination have been diagnostic for advanced arthritis of the left knee. After failing conservative treatment, she has elected to proceed with a left total knee arthroplasty. . Admission Exam (Per Admitting) On physical examination of the left knee, she has decreased range of motion. She is a slight valgus deformity. Tenderness palpation of the distal femoral condyles.. Principal Diagnosis Same as "Discharge Diagnosis" noted below under Discharge Instructions. Discharge Exam On physical examination of the left knee, the dressing is clean and dry. His leg is out full extension. She has active dorsiflexion plantarflexion of her left ankle.. Discharge Data Procedures Performed Operation Date: 11/13/23 10:00 Actual Procedures p Left Total Knee Arthroplasty(Left) - Sonny Reed DO Ordered Studies 11/13/23 05:00 US - OR guided needle placemen Routine Hospital Course (1) Status post left knee replacement: On November 13, 2023 Zoie arrived at [facility] and underwent a left knee replacement without complication. Postoperatively she was transferred to the general orthopedic floors. Her hospital course was uneventful. On postop day #1, her vital signs were stable and her pain was well-controlled. She was able to participate well with physical therapy doing ambulation and range of motion exercises. She was then discharged to home. She will follow-up with orthopedics in 2 weeks. PG Care Time/CCT Total # of Minutes Spent Total Time Spent with Patient: Total time spent is greater than 50% in coordination of care (as documented) at patient's floor/unit and/or counseling patient: Discharge Plan Discharge Items Patient Disposition: Home - Self-Care Reason For Visit: Degenerative Joint Disease Left Knee Discharge Diagnosis: Left knee replacement Activity: Per Instructions section Non-emergency contact: Surgeon Call non-emergency contact if: your wound has increased redness and your wound has increased drainage Follow-up/Referrals: Janneth Pereira PA-C [Primary Care Provider] - Diet: Regular Addtl Attending Provider Instructions: Activity and Therapy Recommendations: * If you are using [facility] then therapy will be provided at your home until they feel you have accomplished all of your goals. * If you are using [facility] then Physical Therapy will be provided until they feel you are ready to start Outpatient Physical Therapy. * If you are not using home therapy then Outpatient Physical Therapy should start about 3-5 days from your day of surgery. Therapy will last about 6-10 weeks * It is important not to put a pillow under your knee when you are relaxing or sleeping. It is just as important to make sure you are getting your knee perfectly straight as it is to regain your knee bend. * You were shown a series of exercises in the hospital. Do these exercises three times each day including the exercises you were shown in physical therapy. * Get up and walk several times each day. For the first four weeks, try not to stand or walk for more than one hour at a time. If you do stand or walk for more than one hour, you will not hurt anything, but your leg will likely swell. * As you feel comfortable, you may change from the walker or crutches to a cane and then to independent walking. Medications: * Narcotic You will likely be sent home from the hospital with a prescription for the narcotic pain medication that worked best throughout your stay. * Cefadroxil -take the antibiotic twice a day for 10 days to help prevent infection. * Aspirin Most patients will be required to take Aspirin 81mg twice a day for 6 weeks after surgery. This is obtained [id number] and a prescription is not necessary. * Other medications may be prescribed for specific circumstances. If you have any questions, please call the office at . * Resume previous home medications unless otherwise instructed TEDs/Elastic Stockings: The white elastic stockings help limit swelling and prevent blood clots from forming in your legs.~ The more you wear them, the more they work. Wear them for six weeks. Dressing Care: The dressing can be changed after physical therapy on postop day #1. Daily dry dressing changes for a few days, especially if the incision is still draining some. If the incision is not draining then you may leave the mart open to air. If there is a little bit of drainage or if the mart are getting stuck on your clothing then cover the incision with a dry dressing. The mart will be removed at your 2 week follow-up appointment. Showering: You may shower 5 days from the day of surgery as long as the incision is no longer draining. You may shower with the mart exposed. Let soapy water run over the mart and pat them dry. Do not scrub or soak the incision. Things To Watch For: * Drainage from the incision site that occurs more than one week after your surgery. * Increased redness at the incision site. * Fever above 102 degrees Fahrenheit. * Unusual chest pain or shortness of breath. * Call [facility] at with any of the above problems Follow-Up Visit: Follow-up with Dr. Reed's PA (Sonny Boss) 2-3 weeks after your day of surgery. He will remove your mart and answer any questions. If you have any additional questions or concerns, Dr Reed is usually in the office at the same time and will be available An appointment was probably scheduled when you signed-up for surgery in the office. If you have any questions call Office Instructions: More detailed instructions as well as Frequently Asked Questions were provided in a folder by our office when you signed-up for surgery. Please review these instructions when you get home. If you have any further questions or concerns, please feel free to call the office at [phone] Pending Studies at Discharge: No Stand-Alone Forms: My [facility], Smoking Cessation Medications and DC Order Prescriptions: New oxycodone 5 mg Tablet 5 mg PO Q4H PRN (Reason: pain) Qty: 30 0RF cefadroxil 500 mg capsule 500 mg PO BID 10 Days Qty: 20 0RF Continued hydrocortisone 2.5 % cream 1 applic topical TID PRN (Reason: skin irritation) Qty: 20 0RF amoxicillin 500 mg Tablet 500 mg PO DAILY PRN (Reason: dental procedures) calcium carbonate-vitamin D3 600 mg-5 mcg (200 unit) Tablet 1 tab PO QAM Patient Comments: "I don't always take it" alendronate 35 mg Tablet 35 mg PO WK Patient Comments: thursday Rx Instructions: Thursday levothyroxine 50 mcg Tablet 50 mcg PO HS sertraline [Zoloft] 50 mg Tablet 50 mg PO HS Patient Comments: haven't been taking rosuvastatin 10 mg Tablet 10 mg PO HS Patient Comments: not been taking lately activated charcoal 200 mg Capsule 400 mg PO UD PRN (Reason: stomach irritation) Rx Instructions: may repeat dose once in 2 hours if incomplete response melatonin 5 mg Tablet 5 - 10 mg PO HS PRN (Reason: Sleep) magnesium oxide 400 mg magnesium Tablet 400 mg PO BID Ocuvite Adult 50 Plus 250 mg (90 mg-160 mg) Capsule 1 cap PO QAM Ozempic 0.25 mg or 0.5 mg (2 mg/3 mL) Pen Injector 0.5 mg SUBCUT WK Patient Comments: sundays - last dose was 09/22 (took late) Rx Instructions: Thursday mirabegron [Myrbetriq] 25 mg Tablet Extended Release 24 Hr 25 mg PO HS Patient Comments: haven't been taking lately lisinopril-hydrochlorothiazide 20-12.5 mg tablet 1 tab PO QAM benzonatate [Tessalon Perles] 100 mg Capsule 100 mg PO HS PRN (Reason: Cough) Prevagen Memory Supplement 1 tab PO QAM Vitamin D3 6,000 unit PO Q2D Changed aspirin 81 mg capsule 81 mg PO BID 42 Days Qty: 0 0RF Discharge Orders: Discharge Order (Routine); Ordered 11/14/23 Ordered By: Sonny Reed Admission Data Admit Date/Time: 11/13/23 12:00 Attending Provider: Sonny Reed Admit Provider: Sonny Reed Primary Care Provider: Janneth Pereira
[2023-11-14 07:21] VITALS: RESP 18; TEMP 97.9; O2SAT 100
[2023-11-14 08:54] LABS: Estimated Average Glucose 131 mg/dl; Hemoglobin A1C 6.2 % (4.5-5.6)
[2023-11-14] MEDS ORDERED: [UNRECOGNIZED DRUG - OTHER] PO SCH (09:00)
[2023-11-14] MEDS: LANTUS PER UNIT CHARGE SC SCH (09:06)
[2023-11-14] MEDS: CHOLECALCIFEROL 125 MCG (5,000 UNITS) TAB PO SCH (09:15)
[2023-11-14] MEDS: CALCIUM 600MG + VIT D 400 IU TAB PO SCH (09:15)
[2023-11-14] MEDS: MULTIVITAMIN TAB PO SCH (09:15)
[2023-11-14] MEDS: LISINOPRIL/HCTZ 20/12.5MG 1 TAB TAB PO SCH (09:15)
[2023-11-14] MEDS: CHOLECALCIFEROL 25 MCG (1000 UNITS) TAB PO SCH (09:16)
[2023-11-14] MEDS: dexAMETHasone 4 MG TAB PO SCH (09:16)
[2023-11-14] MEDS: ASPIRIN 81 MG ECTAB PO SCH (09:16)
[2023-11-14] MEDS: CEROVITE ADV FORMULA TAB PO SCH (09:18)
[2023-11-14 13:02] VITALS: BP 134/71; PULSE 71
== END 2023-11-14 14:13 | disposition home or self-care (01) ==
LOC: ASU 07:53 → 3E 07:53